=== PATIENT | male | born 1985 | race Caucasian/White ===

== ENCOUNTER 2019-06-30 19:22 | Emergency (ER) | payer BC ==
[~2019-06-30] VITALS: Ht 182.9 cm; Wt 90.5 kg
[2019-06-30] MEDS ORDERED: TETRACAINE 0.5% OPHTH SOLN 4ML OS ONE (20:30)
[2019-06-30] MEDS ORDERED: FLUORESCEIN OPHTH 1 MG STRIP OS ONE (20:30)
[2019-06-30] MEDS ORDERED: KETOROLAC 0.5% OPHTH SOLN OS STA (21:06)
[2019-06-30 21:26] VITALS: BP 119/79
[2019-06-30] MEDS ORDERED: CIPROFLOXACIN 0.3% OPHTH SOLN 2.5ML OS ONE (22:00)
== END 2019-06-30 21:28 | disposition home or self-care (01) ==
LOC: M ED 19:22
DX: S05.02XA Injury of conjunctiva and corneal abrasion without foreign body, left eye, initial encounter (principal); W26.8XXA Contact with other sharp object(s), not elsewhere classified, initial encounter; Y92.009 Unspecified place in unspecified non-institutional (private) residence as the place of occurrence of the external cause; Y93.89 Activity, other specified; Y99.9 Unspecified external cause status

== ENCOUNTER → 2022-04-05 | Outpatient (CLI) | payer BC | LOC: M WUC 10:41 | PROVIDERS: ATTEND Physician Assistant | DX: S63.502A Unspecified sprain of left wrist, initial encounter (principal) ==